=== PATIENT | female | born 1995 | race Caucasian/White ===

== ENCOUNTER → 2019-11-28 | Outpatient (CLI) | payer OTHER ==
[~2019-11-28] MED LIST: ATARAX 25MG25 MG/TAB PO; NO HOME MEDICATIONS; NORCO 325 MG-51 TAB PO; OMNICEF 300MG300 MG PO; PYRIDIUM200 M1 PO; ROXICODONE 55 MG/TAB PO; SYNTHROID0.05 MG/TA PO; TORADOL 10MG TA10 MG PO; ULTRAM 50MG TAB50 MG PO
== END ==
LOC: COL.RAD 10:41
DX: Q65.89 Other specified congenital deformities of hip (principal)

== ENCOUNTER 2021-03-14 07:17 | Emergency (ER) | payer OTHER ==
[~2021-03-14] VITALS: Ht 167.6 cm; Wt 53.6 kg
[2021-03-14 07:25] VITALS: TEMP 100.4
[2021-03-14] MEDS ORDERED: [UNRECOGNIZED DRUG - SUPPLY] (07:34)
[2021-03-14] MEDS ORDERED: RETIN-A CR0.025 45GM TP (07:34)
[2021-03-14] MEDS ORDERED: SEROQUEL 1100 MG/TAB PO (07:34)
[2021-03-14] MEDS ORDERED: AMBIEN 10MG10 MG PO (07:34)
[2021-03-14] MEDS ORDERED: [UNRECOGNIZED DRUG - CODE] TP (07:35)
[2021-03-14 07:39] LABS: COLLECTION METHOD CLEAN CATCH
[2021-03-14 07:45] LABS: HEMOGLOBIN 13.3 g/dl (12.5-16.0); MEAN CELL VOLUME 86 fl (80.0-100.0); MEAN CORPUSCULAR HEMOGLOBIN 29 pg (27.0-31.0); MEAN CORPUSCULAR HGB CONC 34 g/dl (33.0-37.0); MEAN PLATELET VOLUME 10.3 fl (7.4-10.4); PLATELET COUNT 126 K/mm3 (130-400); RED BLOOD COUNT 4.55 M/mm3 (4.10-5.30)
[2021-03-14 07:46] LABS: MUCOUS Present /lpf; PH 7 (5-8); SQUAMOUS EPITHELIAL 0-2 /hpf; URINE APPEARANCE Clear; URINE BACTERIA None Seen /hpf; URINE BILIRUBIN Negative (NEGATIVE); URINE BLOOD Negative (NEGATIVE); URINE COLOR Yellow; URINE GLUCOSE Negative (NEGATIVE); URINE KETONE Negative (NEGATIVE); URINE LEUKOCYTE ESTERASE Negative (NEGATIVE); URINE NITRATE Negative (NEGATIVE); URINE PROTEIN(semi-quant) Negative (NEGATIVE); URINE RBC None Seen /hpf; URINE UROBILINOGEN Negative (NEGATIVE)
[2021-03-14 07:58] LABS: ALBUMIN 3.8 gm/dL (3.5-5.0); BILIRUBIN,TOTAL 0.6 mg/dL (0.0-1.0); C-REACTIVE PROTEIN 1.2 mg/dL (0.0-0.9); CALCIUM 8.5 mg/dL (8.4-10.2); CREATININE, serum 0.69 (0.52-1.25); POTASSIUM 3.9 mmol/L (3.4-5.0); TOTAL PROTEIN 6.9 gm/dL (6.4-8.2)
[2021-03-14 08:41] LABS: BAND 2 % (0-10); EOSINOPHIL 1 % (0-4); LYMPHOCYTE 53 % (20.0-51.0); NEUTROPHILS 40 % (42.0-75.2)
[2021-03-14 08:43] LABS: PLATELET ESTIMATE DECREASED (NORMAL)
[2021-03-14 11:05] VITALS: BP 104/67; PULSE 82
[2021-03-16 08:26] LABS: PATHOLOGY DIFF REVIEW OK
== END 2021-03-14 11:05 | disposition home or self-care (01) ==
LOC: COL.ER 07:17
PROVIDERS: Emergency Medicine
DX: R10.9 Unspecified abdominal pain (principal); R50.9 Fever, unspecified; R19.7 Diarrhea, unspecified; R51.9 Headache, unspecified; B09 Unspecified viral infection characterized by skin and mucous membrane lesions; Z32.02 Encounter for pregnancy test, result negative
CPT/HCPCS: J1885; J2405; J7030

== ENCOUNTER → 2022-05-26 | Outpatient (CLI) | payer BC ==
[~2022-05-26] MED LIST changes: +AMBIEN 10MG10 MG PO; +RETIN-A CR0.025 45GM TP; +SEROQUEL 1100 MG/TAB PO; +[UNRECOGNIZED DRUG - CODE] TP; +[UNRECOGNIZED DRUG - SUPPLY]
== END ==
LOC: COL.VAS 05-20 12:30
DX: Z13.6 Encounter for screening for cardiovascular disorders (principal)

== ENCOUNTER → 2023-06-07 | Outpatient (CLI) | payer OTHER | LOC: COL.RAD 08:43 | DX: I31.39 Other pericardial effusion (noninflammatory) (principal) | CPT/HCPCS: Q9967 ==

== ENCOUNTER 2024-04-24 09:45 | Outpatient (RCR) | payer SELFPAY | END 2024-04-25 | disposition home or self-care (01) | LOC: WSPT | DX: M25.551 Pain in right hip (principal) ==

== ENCOUNTER 2024-05-24 10:30 | Outpatient (RCR) | payer OTHER | END 2024-05-26 | disposition home or self-care (01) | LOC: WSPT | DX: M25.551 Pain in right hip (principal) ==